=== PATIENT | female | born 1935 | race African-American/Black ===

== ENCOUNTER → 2017-06-29 | Outpatient (CLI) | payer MEDICARE, BC | END | disposition home or self-care (01) | LOC: MRI 11:09 | PROVIDERS: ATTEND Ophthalmology ==

== ENCOUNTER → 2017-07-20 | Outpatient (CLI) | payer MEDICARE, BC ==
--- NOTE | 2017-07-20 11:25 | RAD ---
Orbits radiograph 07/20/2017 Indication: Pre-MRI screening. Comparison: None available Technique: 2 views of the orbits are provided. Findings: No radiopaque foreign densities are identified within the orbits. Paranasal sinuses appear well aerated. No acute fracture is identified. There is a 5 mm lucent lesion involving the posterior parietal calvaria which may represent an osseous hemangioma. Attention on MRI is recommended. Mild hyperostosis frontalis interna. Impression: No radiopaque foreign density is identified within the orbit.
[2017-07-20 11:34] LABS: CREATININE 1.1 mg/dL (0.6-1.0); GFR 57.4
--- NOTE | 2017-07-20 13:34 | RAD ---
EXAM: Brain and orbital MRI without contrast. HISTORY: Inferior visual defect. TECHNIQUE: Multiplanar, multisequence magnetic resonance imaging of the brain was performed without contrast. COMPARISON: None. FINDINGS: The exam is limited due to motion, inability to administer contrast due to renal insufficiency and utilization of a modified protocol due to an implanted stimulator. There is no restricted diffusion to suggest acute or subacute infarction. There is no mass effect or midline shift. There is no hydrocephalus. There is no susceptibility effect to suggest hemorrhage. There are focal areas of T2/FLAIR hyperintensity within the cerebral white matter, likely due to chronic small vessel disease. There is cerebral volume loss. There are findings consistent with bilateral lens surgery. There is prominent right optic nerve sheath fluid on axial T2-weighted images. However, this appears within normal limits and symmetric to the contralateral optic nerve sheath on dedicated coronal images. There is a tiny focus of mucosal thickening within the right aspect of the sphenoid sinus. IMPRESSION: 1. No acute intracranial finding. 2. Focal areas of signal change within the cerebral white matter, a nonspecific finding likely due to chronic small vessel disease. 3. Limited exam due to motion, a modified protocol due to a reported implanted stimulator device and the absence of intravenous contrast. Electronically signed by: Indy Cuellar MD (07/20/2017 1:31 PM) [id number]
== END | disposition home or self-care (01) ==
LOC: MRI 10:11
PROVIDERS: ATTEND Ophthalmology
DX: I73.9 Peripheral vascular disease, unspecified (principal); N28.9 Disorder of kidney and ureter, unspecified; R90.82 White matter disease, unspecified
CPT/HCPCS: 36415; 70200; 70540; 70551; 82565